=== PATIENT | female | born 1940 | race Asian ===

== ENCOUNTER 2018-09-30 17:21 | Emergency (ER) | payer MEDICAID ==
[~2018-09-30] VITALS: Ht 157.5 cm; Wt 50.6 kg
[2018-09-30 17:59] VITALS: BP 146/80
--- NOTE | 2018-09-30 21:26 | NUR ---
REEVALUATING PT VITALS. PT FAMILY STATED THAT SHE HAS CONSTIPATION AND WHEN SHE GOES TO THE RESTROOM SHE PUSHES HARD AND THEN FEELS PAIN IN HER CHEST AND COUGHS UP BLOOD.
--- NOTE | 2018-09-30 21:27 | NUR ---
PT STATED THAT SHE GETS CHEST PAIN WELL AFTER SHE HAS A BM.
--- NOTE | 2018-09-30 21:28 | NUR ---
PT AMBULATED BACK TO THE LOBBY, [facility].
--- NOTE | 2018-09-30 22:04 | NUR ---
PATIENT TAKEN TO CT WITH TECH VIA WHEELCHAIR.
[2018-09-30 22:14] LABS: BASOPHILS # (AUTO) 0.1 K/uL (0.00-0.22); BASOPHILS % (AUTO) 1.6 % (0.0-2.0); EOSINOPHILS # (AUTO) 0.2 K/uL (0-0.4); EOSINOPHILS % (AUTO) 3.1 % (0.0-4.0); HEMATOCRIT 33.4 % (36-48); HEMOGLOBIN 10.9 g/dL (12.0-16.0); LYMPHOCYTES % (AUTO) 37.5 % (20.5-51.1); MEAN CORPUSCULAR HEMOGLOBIN 31 pg (27-31); MEAN CORPUSCULAR HGB CONC 33 g/dL (33-37); MEAN CORPUSCULAR VOLUME 93.5 fL (80-94); MONOCYTES # (AUTO) 0.5 K/uL (0.8-1.0); NEUTROPHILS # (AUTO) 2.6 K/uL (1.8-7.7); NEUTROPHILS % (AUTO) 47.8 % (42.2-75.2); PLATELET COUNT (AUTO) 377 K/uL (140-450); RED BLOOD CELL COUNT(AUTO) 3.57 MIL/uL (4.20-5.40); RED CELL DISTRIBUTION WIDTH 13.2 % (11.6-13.7); WHITE BLOOD COUNT (AUTO) 5.4 K/uL (4.8-10.8)
--- NOTE | 2018-09-30 22:15 | NUR ---
PATIENT TAKEN TO ER BED 10.
[2018-09-30 22:22] LABS: APPEARANCE,URINE SL CLOUDY (CLEAR); BILIRUBIN,URINE NEGATIVE (NEGATIVE); BLOOD, URINE 1+ (NEGATIVE); COLOR,URINE YELLOW (YELLOW); LEUKOCYTE ESTERASE ,URINE 1+ (NEGATIVE); NITRITE, URINE NEGATIVE (NEGATIVE); UGLUCOSE NEGATIVE (NEGATIVE)
[2018-09-30 22:38] LABS: ANION GAP 12.8 (8-16); CARBON DIOXIDE 25.1 mmol/L (21-32); CHLORIDE 106 mmol/L (98-107); CREATININE 0.8 mg/dL (0.6-1.3); GLUCOSE 100 mg/dL (74-106); POTASSIUM 3.9 mmol/L (3.5-5.1); SODIUM SERUM 140 mmol/L (136-145); UREA NITROGEN, BLOOD 18 mg/dL (7-18)
[2018-09-30 22:43] LABS: ALBUMIN 3.2 g/dL (3.4-5.0); ASPARTATE AMINOTRANSFERASE 22 U/L (15-37); TOTAL BILIRUBIN 0.2 mg/dL (0.0-1.0)
[2018-09-30 23:03] LABS: URIC ACID CRYSTALS,URINE 50-70 /HPF (None Seen); WBC,URINE 20-60 /HPF (0-5)
[2018-09-30 23:52] VITALS: BP 141/72
--- NOTE | 2018-09-30 23:52 | NUR ---
Patient discharged with v/s stable. Written and verbal after care instructions given and explained by Dr Bright. Patient verbalized understanding. Ambulatory with steady gait. All questions addressed prior to discharge by Dr Bright. Advised to follow up with PMD.
== END 2018-09-30 23:52 | disposition home or self-care (01) ==
LOC: MED 17:21
DX: S39.011A Strain of muscle, fascia and tendon of abdomen, initial encounter (principal); R04.2 Hemoptysis; Z88.0 Allergy status to penicillin; X58.XXXA Exposure to other specified factors, initial encounter; Y93.89 Activity, other specified; Y92.89 Other specified places as the place of occurrence of the external cause; Y99.8 Other external cause status
CPT/HCPCS: 36415; 71250; 80053; 81001; 85025; 87086; 99284